=== PATIENT | female | born 1950 ===

== ENCOUNTER 2018-09-07 09:34 | Day surgery (SDC) | payer MEDICARE, OTHER, MEDICAID ==
[2018-09-07 10:44] VITALS: BMI 26.9
[2018-09-07] MEDS ORDERED: Lactated Ringer's 500 ML IV ONE (10:47)
[2018-09-07] MEDS ORDERED: Midazolam 2 MG/2 ML VIAL ONE (12:06)
[2018-09-07] MEDS ORDERED: Propofol 10 mg/ml Inj (20 ML) ONE (12:06)
[2018-09-07 12:44] VITALS: RESP 12; O2SAT 100
[2018-09-07 12:59] VITALS: BP 105/64; PULSE 52; TEMP 98
== END 2018-09-07 14:02 | disposition home or self-care (01) ==
LOC: H.ENDO 09:34
PROVIDERS: ATTEND Internal Medicine Gastroenterology
DX: K31.89 Other diseases of stomach and duodenum (principal); K29.80 Duodenitis without bleeding; E78.00 Pure hypercholesterolemia, unspecified; E78.5 Hyperlipidemia, unspecified; I10 Essential (primary) hypertension; K29.70 Gastritis, unspecified, without bleeding
CPT/HCPCS: 43239; 88305; J2001; J2250; J2704; J7120